=== PATIENT | male | born 1970 | race Caucasian/White ===

== ENCOUNTER 2019-03-03 08:20 | Emergency (ER) | payer OTHER ==
[2019-03-03 08:35] VITALS: BP 100/71; PULSE 92; TEMP 97.8; BMI 25.5
[2019-03-03] MEDS ORDERED: KETOROLAC TROMETHAMINE 60 MG/2 ML VIAL IM ONE (08:57)
[2019-03-03] MEDS ORDERED: CYCLOBENZAPRINE HCL 5 MG TABLET PO ONE (08:57)
[2019-03-03] MEDS ORDERED: KETOROLAC TROMETHAMINE 60 MG/2 ML VIAL ONE (09:05)
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
[2019-03-03] MEDS ORDERED: CYCLOBENZAPRINE HCL 10 MG TABLET (FP) ONE (09:12)
== END 2019-03-03 09:48 | disposition home or self-care (01) ==
LOC: JER 08:20
PROC: 3E0233Z Introduction of Anti-inflammatory into Muscle, Percutaneous Approach (ICD-10-PCS; principal; 2019-03-03)
DX: M62.838 Other muscle spasm (principal); V69.49XA Driver of heavy transport vehicle injured in collision with other motor vehicles in traffic accident, initial encounter; Y92.414 Local residential or business street as the place of occurrence of the external cause; Y93.89 Activity, other specified; Y99.8 Other external cause status
CPT/HCPCS: 96372; 99283-25

== ENCOUNTER 2024-10-08 15:18 | Inpatient (IN) | payer OTHER ==
[2024-10-08] MEDS ORDERED: ACETAMINOPHEN INJECTION 100 ML ONE (16:21)
[2024-10-08] MEDS ORDERED: ALBUTEROL SO4 2.5/IPRATROPIUM 0.5 INH SOL 3 ML VIAL.NEB. NEB ONE ×2 (16:23→16:54)
[2024-10-08] MEDS: SODIUM CHLORIDE 0.9% 500 ML INFUS.BAG IV ONE (16:32)
[2024-10-08] MEDS: ACETAMINOPHEN 1000 MG/100 ML BAG IVPB ONE (16:32)
[2024-10-08] MEDS: ALBUTEROL SO4 2.5/IPRATROPIUM 0.5 INH SOL 3 ML VIAL.NEB. NEB ONE ×2 (16:32→16:55)
[2024-10-08 16:35] LABS: VENOUS BASE EXCESS 1.8 mmol/L (-2-2); VENOUS O2 SATURATION 31.3 % (70-80); VENOUS PCO2 42.6 mmHg (38-52); VENOUS PH 7.415 (7.310-7.410)
[2024-10-08 16:38] LABS: BASO % 0.1 % (0-2.0); HEMATOCRIT 47.1 % (35.4-49); HEMOGLOBIN 15.9 GM/dL (11.7-16.9); LYMPH % 10.9 % (8-40); MCH 31.1 pg (25.7-33.7); MCHC 33.8 g/dl (32.0-35.9); MEAN PLT VOLUME 9.2 fl (7.5-11.1); MONO % 10.8 % (3.8-10.2); NEUT % 78.2 % (42.8-82.8); PLATELET COUNT 200 10^3/uL (134-434); RBC 5.12 M/mm3 (4.00-5.60); WHITE BLOOD COUNT 9.7 K/mm3 (4.0-10.0)
[2024-10-08 16:43] LABS: INR 1.31 (0.83-1.09); PROTHROMBIN TIME (PATIENT) 14.7 SEC (9.7-13.0)
[2024-10-08 16:45] LABS: ACTIVATED PTT 33.6 SECONDS (25.2-36.5)
[2024-10-08 16:49] LABS: POTASSIUM 3.6 mmol/L (3.5-5.1)
[2024-10-08 16:51] LABS: CALCIUM 9.3 mg/dL (8.5-10.1)
[2024-10-08 16:52] LABS: BLOOD UREA NITROGEN 21.6 mg/dL (7-18)
[2024-10-08 16:55] LABS: CREATININE 1.5 mg/dL (0.55-1.3)
[2024-10-08 16:57] LABS: BILIRUBIN,TOTAL 0.6 mg/dL (0.2-1); TOT PROT 8.5 g/dl (6.4-8.2)
[2024-10-08 17:19] LABS: EPI CELLS 13 /uL (0-25.1); HYALINE CASTS 2 /uL (0-3.1); PH,URINE 5.5 (5.0-8.0); URINE APPEARANCE CLEAR; URINE BACTERIA 9 /uL (0-1359); URINE BILIRUBIN NEGATIVE (NEGATIVE); URINE COLOR DK YELLOW; URINE GLUCOSE (UA) NEGATIVE (NEGATIVE); URINE KETONE TRACE (NEGATIVE); URINE LEUK ESTERASE NEGATIVE (NEGATIVE); URINE NITRITE NEGATIVE (NEGATIVE); URINE PROTEIN 2+ (NEGATIVE); URINE RBC 20 /uL (0-23.9); URINE UROBILINOGEN 0.2 mg/dL (0.2-1.0); URINE WBC 37 /uL (0-25.8)
[2024-10-08] MEDS ORDERED: CEFTRIAXONE 1 G/50 ML PREMIX 50 ML IVPB ONE (18:11)
[2024-10-08] MEDS: CEFTRIAXONE 1,000 MG in DEXTROSE 5%-WATER - 50 ML IVPB ONE (18:18)
[2024-10-08] MEDS ORDERED: AZITHROMYCIN 500 MG TABLET ONE (18:27)
[2024-10-08] MEDS: AZITHROMYCIN 250 MG TABLET PO ONE (18:28)
[2024-10-08] MEDS ORDERED: methylPREDNISolone NA SUCC 125 MG/2 ML VIAL ONE (18:57)
[2024-10-08] MEDS: methylPREDNISolone NA SUCC 125 MG/2 ML VIAL IVPB ONE (19:01)
[2024-10-08] MEDS ORDERED: ALBUTEROL SO4 0.083% IH SOL 2.5 MG/3 ML VIAL.NEB. NEB PRN (19:36)
[2024-10-08] MEDS: LACTATED RINGERS SOLUTION 1000 ML INFUS.BAG IV ONE (19:59)
[2024-10-08] MEDS ORDERED: guaiFENesin/D-METHORPHAN HB 10 ML UNIT-DOSE CUPS PO PRN (21:28)
[2024-10-08] MEDS: D5-NS + 20 MEQ KCL - 20 MEQ/1,000 ML INFUS.BAG IV SCH (21:53)
[2024-10-09 00:30] VITALS: BMI 26.1
[2024-10-09] MEDS: methylPREDNISolone NA SUCC 40 MG/1 ML VIAL IVPUSH SCH ×2 (02:48→21:59)
[2024-10-09 09:52] LABS: BASO % 0.1 % (0-2.0); HEMATOCRIT 42.2 % (35.4-49); HEMOGLOBIN 13.9 GM/dL (11.7-16.9); LYMPH % 14.5 % (8-40); MCH 30.6 pg (25.7-33.7); MCHC 32.9 g/dl (32.0-35.9); MEAN CELL VOLUME 93.3 fl (80-96); MEAN PLT VOLUME 9.1 fl (7.5-11.1); MONO % 4.2 % (3.8-10.2); NEUT % 81.2 % (42.8-82.8); PLATELET COUNT 191 10^3/uL (134-434); RBC 4.52 M/mm3 (4.00-5.60); RDW 13.4 % (11.9-15.9); WHITE BLOOD COUNT 8.4 K/mm3 (4.0-10.0)
[2024-10-09 10:13] LABS: CHLORIDE 107 mmol/L (98-107); POTASSIUM 4.2 mmol/L (3.5-5.1); SODIUM 139 mmol/L (136-145)
[2024-10-09 10:31] LABS: ANION GAP 8 mmol/L (4-13); BLOOD UREA NITROGEN 15.4 mg/dL (7-18); CALCIUM 8.4 mg/dL (8.5-10.1); CO2 24 mmol/L (21-32)
[2024-10-09] MEDS: CEFTRIAXONE 1 G/50 ML PREMIX 50 ML IVPB SCH (10:31)
[2024-10-09 10:32] LABS: GLUCOSE,RANDOM 142 mg/dL (74-106); MAGNESIUM 2.2 mg/dL (1.8-2.4)
[2024-10-09 10:35] LABS: CREATININE 0.8 mg/dL (0.55-1.3)
[2024-10-09 10:39] LABS: PHOSPHOROUS 1.1 mg/dL (2.5-4.9)
[2024-10-09] MEDS: ALBUTEROL SO4 0.083% IH SOL 2.5 MG/3 ML VIAL.NEB. NEB SCH (11:28)
[2024-10-09] MEDS: NAPH,MB-DB/K PH,MBDB POWDER PACKET PO SCH (13:41)
[2024-10-09] MEDS: AZITHROMYCIN IVPB 500 MG/250 ML BAG IVPB ONE (13:43)
[2024-10-10 00:13] VITALS: RESP 18
[2024-10-10] MEDS: ENOXAPARIN NA (PORCINE) 40 MG/0.4 ML DISP.SYRIN SQ SCH (10:03)
[2024-10-11 06:35] VITALS: BP 108/77; TEMP 97.3
[2024-10-11] MEDS: predniSONE 20 MG TABLET (UD) PO SCH (09:29)
[2024-10-11 12:12] VITALS: PULSE 85
[2024-10-11] MEDS ORDERED: AMOX TR/POT CLAV 875MG/125MG TABLETS (FP) PO SCH (17:30)
== END 2024-10-11 12:12 | disposition home or self-care (01) | DRG 139 ==
LOC: JER 15:18 → JERBED 19:14 → J8W 23:28 → OBSVTOIN 10-09 08:49
PROVIDERS: ADMIT Internal Medicine; ATTEND Nurse Practitioner Acute Care
DX: J18.9 Pneumonia, unspecified organism (principal); N17.9 Acute kidney failure, unspecified; R19.7 Diarrhea, unspecified; J45.909 Unspecified asthma, uncomplicated; R09.02 Hypoxemia; Z85.038 Personal history of other malignant neoplasm of large intestine
CPT/HCPCS: 0241U-QW; 36415; 71045-TC-FY; 80048; 80053; 81003; 82803; 83605; 83735; 84100; 84484; 85025; 85610; 85730; 86850; 86900; 86901; 87040; 87086; 93005; 93010; 94640; 99285-25; G0378; J0131